=== PATIENT | male | born 1995 | race Two or more races ===

== ENCOUNTER 2023-03-22 04:19 | Day surgery (SDC) | payer OTHER ==
[2023-03-20 16:57] VITALS: BMI 24.4
[2023-03-22] MEDS ORDERED: BUPIVACAINE HCL/PF 0.5% (5MG/ML) 10 ML VIAL ONE (10:20)
[2023-03-22] MEDS ORDERED: LIDOCAINE HCL 1%, 10 MG/ML (10ML VIAL) MDV ONE (10:20)
[2023-03-22] MEDS ORDERED: MIDAZOLAM HCL 2 MG/2 ML SINGLE DOSE VIAL ONE ×3 (10:23→10:48)
[2023-03-22] MEDS ORDERED: PROPOFOL 20 ML ONE (10:23)
[2023-03-22] MEDS ORDERED: ceFAZolin SODIUM 1 GM VIAL IVPB ONE (10:44)
[2023-03-22] MEDS ORDERED: BUPIVACAINE HCL/PF 0.5% (5 MG/ML) 30 ML VIAL IJ ONE ×2 (11:09)
[2023-03-22] MEDS ORDERED: LIDOCAINE HCL 1%, 10 MG/ML (20ML VIAL) INF ONE ×2 (11:09)
[2023-03-22] MEDS ORDERED: oxyCODONE HCL 5 MG TABLET PO PRN (11:43)
[2023-03-22] MEDS ORDERED: ACETAMINOPHEN 1000 MG/100 ML BAG IVPB ONE ×2 (11:43→12:11)
[2023-03-22] MEDS ORDERED: ONDANSETRON 4 MG/2 ML VIAL IVPUSH PRN (11:43)
[2023-03-22] MEDS ORDERED: LACTATED RINGERS SOLUTION 1,000 ML IV SCH (11:45)
[2023-03-22] MEDS ORDERED: ACETAMINOPHEN INJECTION 100 ML IVPB ONE (12:07)
[2023-03-22 12:28] VITALS: TEMP 97.3
[2023-03-22 14:19] VITALS: BP 122/82; PULSE 68; RESP 16
== END 2023-03-22 13:50 | disposition home or self-care (01) ==
LOC: JASU-SURG 04:19
PROVIDERS: ATTEND Surgery
PROC: 0JB70ZZ Excision of Back Subcutaneous Tissue and Fascia, Open Approach (ICD-10-PCS; principal; 2023-03-22 10:00)
DX: D17.1 Benign lipomatous neoplasm of skin and subcutaneous tissue of trunk (principal)
CPT/HCPCS: 88304-TC; 94760